=== PATIENT | male | born 1980 | race Caucasian/White ===

== ENCOUNTER 2025-01-16 15:15 | Outpatient (AMB) | payer OTHER, SELFPAY ==
--- NOTE | 2025-01-16 15:19 | A.OFFPC_ITS ---
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 Patient presents today with his who is the reel fed printer for the duration of this visit. Formal interpretation was declined today. He does have a few concerns the 1st being he has had elevated blood pressure throughout life without any specific values. He does not routinely monitor his blood pressure and has not been to see a doctor in at least 15 years. He has never been treated for high blood pressure and denies any symptoms at this time. He also mentions having right knee pain and was recently seen [facility] where x-rays were taken and he was told it was normal. He has pain on the medial aspect of the right knee with flexion of the knee and with activities including bending. The pain began about 1 year ago without any inciting event or injury. He does use Motrin and Tylenol as needed for pain. [facility] Surgical History S/P appendectomy Social History Household Members: Spouse and Children Both parents involved: Yes Caregiver staying overnight: No Housing: House Are you a primary healthcare specialist to a significant other at home: No Alcohol intake: never Patient Tobacco Use Status: Never used Tobacco e-Cigarette/Vaping Use: Never Used service: No Current occupational status: employed and unemployed Hearing needs: No Vision needs: No Questionnaire PHQ-9 Over the last 2 weeks, how often have you been bothered by any of the following problems? 1. Little interest or pleasure in doing things: not at all 2. Feeling down, depressed, or hopeless: not at all 3. Trouble falling or staying asleep, or sleeping too much: not at all 4. Feeling tired or having little energy: not at all 5. Poor appetite or overeating: not at all 6. Feeling bad about yourself - or that you are a failure or have let yourself or your family down: not at all 7. Trouble concentrating on things, such as reading the newspaper or watching television: not at all 8. Moving or speaking so slowly that other people could have noticed. Or the opposite - being so fidgety or restless that you have been moving around a lot more than usual: not at all 9. Thoughts that you would be better off or of hurting yourself in some way: not at all Total score: 0 Depression Screening Interpretation: Negative Depression Screening Done: Yes 33203 - PHQ-9 Billing: Yes Source: Developed by Drs. Bowen Hurst, Kelly Hickman, Julian Castillo and colleagues, with an educational daniela from [employer]. Thrive Questionnaire Date Thrive assessed: 01/16/25 I am a: Patient What is your living situation today?: I have a steady place to live Within the past 12 months, did the food you bought not last and you didn't have the money to get more?: Never true Within the past 12 months, did you worry whether your food would run out before you got money to buy more?: Never true Do you have trouble paying for medicines?: No Do you have trouble getting transportation to medical appointments?: No Do you have trouble paying your heating and electricity bill?: No Do you have trouble taking care of your child, family member or friend?: No Do you have trouble with day-to-day activities such as bathing, preparing meals, shopping, managing finances, etc.?: No Are you currently unemployed and looking for a job?: No Are you interested in more education?: No Please select the resources that you would like help with: None Currently or been in a relationship where the following occur: No concerns reported THRIVE Score: 0 AUDIT C Alcohol Use Questionnaire (AUDIT-C) 1. How often do you have a drink containing alcohol?: Never Total Score: 0 MUNIR-7 AMB Questionnaire MUNIR-7 Date MUNIR - 7 assessed: 01/16/25 Feeling nervous, anxious, or on edge: 0 = Not at all Not being able to stop or control worryin = Not at all Worrying too much about different things: 0 = Not at all Trouble relaxin = Not at all Being so restless that it is hard to sit still: 0 = Not at all Becoming easily annoyed or irritable: 0 = Not at all Feeling afraid as if something awful might happen: 0 = Not at all Total MUNIR-7 score (0-4 normal; 5-9 mild; 10-14 moderate; 15-21 severe): 0 Source: Developed by Drs. Bowen Hurst, Kelly Hickman, Julian Castillo and colleagues, with an educational daniela from [employer]. MUNIR-7 Assessment Billing MUNIR-7 Assessment Tool: MUNIR-7 Assessment 78852 Review of Systems Const Denies body aches, Denies chills, Denies fever(s), Denies headache(s) and Denies poor appetite Eyes Reports no additional complaints ENT Denies dysphagia, Denies dizziness, Denies headache(s) and Denies odynophagia Card Denies chest pain, Denies syncope, Denies edema, Denies irregular heart rhythm, Denies lightheadedness and Denies dyspnea Resp Denies cough and Denies dyspnea GI Denies abdominal pain, Denies constipation, Denies dysphagia, Denies diarrhea, Denies nausea, Denies odynophagia and Denies vomiting Reports no additional complaints Musc Reports no additional complaints and Denies abnormal gait Skin/Breast Reports system reviewed and no additional complaints, except as documented Neuro Denies abnormal gait, Denies dizziness, Denies syncope and Denies headache(s) Psych Reports no additional complaints Physical exam (Primary Care) Vital Signs: Last Vital Signs Pulse 97 01/16/25 15:23 BP 140/82 H 01/16/25 15:23 Pulse Ox 98 01/16/25 15:23 BMI result Body Mass Index 26.8 Tobacco/Smoking Status: Tobacco use Status Tobacco use date assessed 01/16/25 01/16/25 15:23 Patient Tobacco Use Status Never used Tobacco 01/16/25 15:30 e-Cigarette/Vaping Use Never Used 01/16/25 15:30 PHQ-9: PHQ-9 Score PHQ-9: Total score 0 01/16/25 15:23 Depression Screening Interpretation: Negative Thrive Assessment: Date of Thrive Assessment Date Thrive assessed 01/16/25 01/16/25 15:23 Currently or been in a relationship where the following occur: No concerns reported Const General: cooperative, healthy appearing, comfortable and no acute distress Orientation/consciousness: patient oriented x3 HENMT Head: Yes normocephalic Ears: hearing grossly normal bilaterally General nose exam: Normal external nose present Eyes General: appearance normal, both eyes and all related structures Conjunctivae: conjunctivae normal Neck Neck: Yes full ROM and Yes no lymphadenopathy Resp Effort & Inspection: normal respiratory effort Auscultation: clear to auscultation bilaterally, no crackles, no rales, no rhonchi and no wheezes Cardio Rate: regular rate Rhythm: regular rhythm Skin General skin exam: no rashes or lesions noted Neuro General: patient oriented x3 Gait exam (Neuro): Normal gait present Extrem Other: No tenderness to palpation over the entirety of the right knee. Intact strength, sensation, pulses in bilateral lower extremities. Positive Maria Esther test eliciting pain on the medial aspect of the right knee General: Yes normal to inspection, Yes full ROM and No edema Psych Affect: normal affect Attitude: cooperative Insight: Good insight present (Psych) Judgement: Good judgement present (Psych) Coding Level of Care Code New Pt Level 4 (31707) Diagnoses Elevated blood pressure reading without diagnosis of hypertension R03.0 Right medial knee pain M25.561 Additional Codes MUNIR-7 Assessment Billing - MUNIR-7 Assessment Tool: MUNIR-7 Assessment 53756 ([id number]) PHQ-9 - 99507 - PHQ-9 Billing: Yes ([id number]) Assessment & Plan Assessment & Plan (1) Elevated blood pressure reading without diagnosis of hypertension: Comment: long hx of HBP Code(s): R03.0 - Elevated blood-pressure reading, without diagnosis of hypertension Category: Medical Plan: Patient having a history of elevated blood pressure. In the office today 140/82 and 148/90 when retaken. Discussed starting medication as this is an ongoing issue however patient would like to hold off on medication at this time. Patient was given parameters for elevated blood pressure and informational resources. Advised to take blood pressure daily for the next 2 months and reach out to the office if blood pressure should exceed 140/90. Consider losartan or lisinopril if blood pressure remains elevated. Bring log to next visit (2) Right medial knee pain: Code(s): M25.561 - Pain in right knee Category: Medical Plan: Patient having medial knee pain of the right knee concerning for possible meniscus tear. X-ray was normal and plan to obtain these results from [facility]. I did recommend physical therapy however due to patient's working schedule this is a not a feasible option. Plan to refer to Orthopedics for further evaluation and treatment Plan This note was constructed using voice recognition software. While every effort has been made to ensure accuracy and personal banking officer, still areas may have been included sometimes these areas may affect the content or meeting of the given symptoms. Total time spent caring for the patient today was 30 minutes. This includes time spent before the visit reviewing the chart, time spent during the visit, and time spent after the visit and documentation. Orders: Referrals Orthopedics Referral M25.561 - Pain in right knee
[2025-01-16 15:23] VITALS: BP 140/82; PULSE 97; O2SAT 98; BMI 26.8
== END 2025-01-16 16:04 | disposition home or self-care (01) ==
LOC: HO.HMCH 15:16
DX: R03.0 Elevated blood-pressure reading, without diagnosis of hypertension (principal); M25.561 Pain in right knee

== ENCOUNTER → 2025-01-16 15:15 | Outpatient (BNVA) | payer OTHER, SELFPAY | DX: M25.561 Pain in right knee (principal); R03.0 Elevated blood-pressure reading, without diagnosis of hypertension | CPT/HCPCS: 96127; 99202 ==

== ENCOUNTER 2025-03-31 10:15 | Outpatient (REF) | payer OTHER, SELFPAY ==
--- NOTE | ~2025-03-31 | XR_ITS ---
EXAMINATION: XR KNEE, RIGHT CLINICAL INFORMATION: M25.561 - Pain in right knee COMPARISON: None available. TECHNIQUE: Three views of the right knee. FINDINGS: No fracture, dislocation, or suspicious bone lesion. Normal bone mineralization. Normal alignment. Joint spaces are preserved. No significant arthropathy. Normal patellar alignment. No significant joint effusion. Soft tissues appear normal. XR/XR knee RT 3V IMPRESSION: Normal right knee. Electronically signed by: Rashad Titus MD 03/31/2025 01:14 PM EDT
--- OUTSIDE RECORDS SUMMARY | 2025-03-31 12:04 | XMS_ITS | Clinical Summary ---
Author Organization [facility] Address [address] [place] [address] [place] [phone] Phone Care Team Providers Care Strategic Intelligence Officer Name Role Phone Pcp, Unknown Primary Care Provider Unavailabl e Allergies No known active allergies Medications No known medications Social History Tobacco Use Types Packs/Day Years Used Date Smoking Tobacco: Never Assessed Education Answer Date Recorded Are you interested in more education? Not on kacy e 08/13/2024 Are you concerned about learning? Not on file 08/13/2024 No 08/13/2024 No 08/13/2024 Digital Access Answer Date Recorded No 08/13/2024 No 08/13/2024 Reliable internet access at home? Not on file 08/13/2024 Device with a working camera? Not on file Sex and Gender Information Value Date Recorded Sex Assigned at Not on file Legal Sex Male 1:18 PM EST Gender Identity Not on file Sexual Orientation Not on file Plan of Treatment Health Maintenance Due Date Last Done Comments Adult Td,Tdap Booster 1979 LIPID PANEL 1979 DEPRESSION SCREENING 1991 SMOKING Hx and SMOKELESS TOB ACCO SCREENING 12/01/1992 HEPATITIS C SCREENING 12/01/1997 HIV ONE-TIME SCREENING (18-6 5 YEARS) 12/01/1997 COLOGUARD 12/01/2024 COLONOSCOPY 12/01/2024 COLORECTAL CANCER SCREENING 12/01/2024 FIT TEST 12/01/2024 FOBT 12/01/2024 SIGMOIDOSCOPY 12/01/2024 VIRTUAL COLONOSCOPY 12/01/2024 INFLUENZA VACCINE (#1) 2025 COVID-19 VACCINE (2024-2 6 season) 2025 HEPATITIS A VACCINES Aged Out No long er eligible based on patient's age to complete this topic HIB VACCINES Aged Out No longer eligi ble based on patient's age to complete this topic MENINGOCOCCAL VACCINES (ACWY) Aged Out No longer eligible based on patient's age to complete this topic MENINGOCOCCAL VACCINES (B) Aged Out N o longer eligible based on patient's age to complete this topic PNEUMOCOCCAL VACCINES (0-49 years) Aged Out No longer eligible based on patient's age to complete this topic Medical Devices Not [place] [id number] [facility] [place] [address] [facility] [employer] [place] [address] [facility] [employer] [place] [address] [facility] Care Teams Strategic Intelligence Officer Relationship Specialty Start Date End Date Pcp, Unknown PCP - General 08/13/24 Additional Source Comments The information contained in this document represents components of the legal health record. It is not the complete legal health record.[facility]
== END 2025-03-31 10:16 | disposition home or self-care (01) ==
LOC: HO.HOSX 10:15
PROVIDERS: Visit Provider Physician Assistant
DX: S83.241A Other tear of medial meniscus, current injury, right knee, initial encounter (principal); X50.9XXA Other and unspecified overexertion or strenuous movements or postures, initial encounter
CPT/HCPCS: 73562; 99202

== ENCOUNTER 2025-03-31 12:48 | Outpatient (AMB) | payer OTHER, SELFPAY ==
--- NOTE | 2025-03-31 13:02 | MHC.OFFVIS ---
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 The patient describes his pain as sharp in nature. Most of the pain is along the medial aspect of his knee. 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 His symptoms have gotten worse over the last year in spite of continued non operative treatments. He has failed the last 6 weeks of conservative treatment which has included Tylenol, anti-inflammatory medicines and a home exercise program. Allergies No Known Allergies Allergy (Verified 03/31/25 13:07) Medication List - Last Reconciled 03/31/25 by Nathaniel Erazo MD No Known Home Meds [facility] Surgical History S/P appendectomy Social History Household Members: Spouse and Children Both parents involved: Yes Caregiver staying overnight: No Housing: House Are you a primary career education teacher to a significant other at home: No Alcohol intake: never Patient Tobacco Use Status: Never used Tobacco e-Cigarette/Vaping Use: Never Used service: No Current occupational status: employed and unemployed Hearing needs: No Vision needs: No Physical Exam Vital Signs: BMI result Body Mass Index 28.2 Const Other: Well-nourished well-developed very friendly male awake alert and oriented x3 in no acute distress Extrem Other: Right knee examination shows a minimal effusion, minimal crepitus with range of motion, tenderness along his medial joint line, positive Shar's test, no instability Results Reviewed Results Reviewed: X-rays of the patient's right knee show mild diffuse joint space narrowing, no acute bony abnormalities Assessment & Plan Assessment & Plan (1) Tear of medial meniscus of right knee: Code(s): S83.241A - Other tear of medial meniscus, current injury, right knee, initial encounter Category: Medical Plan Mr. Kim presents with right knee pain and mechanical symptoms most likely due to a medial meniscus tear. Thus, I will send the patient for an MRI of his right knee for further evaluation. I will see him back once the MRI is completed to discuss the findings and treatment options. Feel free to call me at any time should questions regarding his orthopedic management arise. Thank you very much for asking me to see this very friendly gentleman. I spent 20 minutes in reviewing the patient's records and imaging studies, seeing the patient and documenting in the medical record. Orders: Orders MR knee RT wo con 04/01/25 S83.241A - Other tear of medial meniscus, current injury, right knee, initial encounter XR knee RT 3V Today M25.561 - Pain in right knee Coding Level of Care Code New Pt Level 3 (64877) Complex EM visit Add On G2211 Diagnoses Tear of medial meniscus of right knee S83.241A
[2025-03-31 13:06] VITALS: BMI 28.2
== END 2025-03-31 13:18 | disposition home or self-care (01) ==
LOC: HO.HOS 12:48
PROVIDERS: Visit Provider Orthopaedic Surgery
DX: S83.241A Other tear of medial meniscus, current injury, right knee, initial encounter (principal)
CPT/HCPCS: 99203

== ENCOUNTER → 2025-03-31 12:50 | Outpatient (BNV) | payer OTHER, SELFPAY | PROVIDERS: Visit Provider Radiology Diagnostic Radiology | DX: M25.561 Pain in right knee (principal) | CPT/HCPCS: 73562 ==

== ENCOUNTER 2025-04-30 06:35 | Outpatient (REF) | payer OTHER, SELFPAY ==
--- OUTSIDE RECORDS SUMMARY | 2025-04-30 06:38 | XMS_ITS | Clinical Summary ---
Author Organization [facility] Address [address] [place] [address] [place] [phone] Phone Care Team Providers Care Gang Investigator Name Role Phone Pcp, Unknown Primary Care [...] on patient's age to complete this topic IPV VACCINES Aged Out No longer eligi ble [...] topic Medical Devices Not on file Insurance [facility] PCP [place] [facility] PCP [place] [facility] PCP [facility] [employer] Care Teams Gang Investigator Relationship Specialty Start Date End Date Pcp, Unknown PCP - General 08/13/24 Additional Source Comments The information contained in this document represents components of the legal health record. It is not the complete legal health record[facility]
[2025-04-30 10:15] LABS: MANUAL DIFF FLAG NO
[2025-04-30 10:25] LABS: Hematocrit 46.6 % (42.0-52.0); Hemoglobin 16.1 g/dl (14.0-18.0); Mean Corpuscular HGB Conc 34.5 g/dl (31.0-36.0); Mean Corpuscular Hemoglobin 29.7 pg (27.0-33.0); Mean Corpuscular Volume 85.8 fL (80.0-98.0); Red Blood Count 5.43 X10*6/uL (4.60-5.80); White Blood Count 7.8 X10*3/uL (4.8-10.8)
[2025-04-30 10:26] LABS: Imm Gran Abs Auto 0.04 X10*3/uL (0.00-0.03); Imm Gran Pct Auto 0.5 % (0.0-0.4); Lymphocytes Absolute Auto 3.5 X10*3/uL (1.2-4.9); NRBC Abs Auto 0.000 X10*3/uL (0.0-0.012); NRBC Pct Auto 0.0 /100WBC (0.0-0.2); Platelet Count 246 X10*3/uL (160-400)
[2025-04-30 11:00] LABS: Alanine Aminotransferase 38 U/L (0-40); Albumin Level 4.6 g/dL (3.5-5.0); Alkaline Phosphatase 70 U/L (39-117); Anion Gap 11 (12-20); Aspartate Amino Transferase 34 U/L (5-37); Blood Urea Nitrogen 12 mg/dL (9-16); Calcium 9.4 mg/dL (8.4-10.2); Carbon Dioxide 27 mmol/L (22-29); Chloride 107 mmol/L (96-108); Cholesterol 281 mg/dL (<200); Estimated Glomerular Filt Rate > 60; HDL Cholesterol 49 mg/dL (>40); Potassium 3.6 mmol/L (3.3-5.1); Sodium 141 mmol/L (135-145); Total Protein 7.4 g/dL (6.5-8.0); Triglycerides 215 mg/dL (<150)
[2025-04-30 11:30] LABS: Folate 12.0 ng/mL (> or = 4.0); Vitamin B12 351 pg/mL (200-900)
== END 2025-04-30 06:36 | disposition home or self-care (01) ==
LOC: HO.HMGCLDS 06:35
DX: Z13.0 Encounter for screening for diseases of the blood and blood-forming organs and certain disorders involving the immune mechanism (principal); Z13.29 Encounter for screening for other suspected endocrine disorder; Z13.21 Encounter for screening for nutritional disorder; Z13.220 Encounter for screening for lipoid disorders; Z13.1 Encounter for screening for diabetes mellitus; R03.0 Elevated blood-pressure reading, without diagnosis of hypertension
CPT/HCPCS: 36415; 80053; 80061; 82306; 82607; 82746; 84443; 85025

== ENCOUNTER 2025-05-01 13:53 | Outpatient (AMB) | payer OTHER, SELFPAY ==
[2025-05-01 13:55] VITALS: BP 160/110; PULSE 70; TEMP 36.7; O2SAT 99; BMI 28.6
--- NOTE | 2025-05-01 13:55 | A.OFFPC_ITS ---
Vital Signs 05/01/25 13:55 05/01/25 14:17 Height 5 ft 6 in Weight 177 lb 6 oz BMI 28.6 BP 160/110 H 160/92 H Blood Pressure Location Lt brachial Lt brachial Position Sitting Sitting Pulse 70 Pulse Source Pulse Oximeter Temp 98.1 F Temp Source Temporal Artery Scan Pulse Oximetry (%) 99 Oxygen Delivery Method Room Air Intake Visit Reasons: f/u BP Certified Medical Technician Assistant Required: No Accompanied by: Self / Same As Patient Allergies No Known Allergies Allergy (Verified 05/01/25 14:01) Medication List - Last Reconciled 05/01/25 by Shruthi Gustafson PA-C No Known Home Meds Tobacco use date assessed: 01/16/25 Dental Screening Dental Screen Date: 01/16/25 Did you have a dental visit in the last 12 months?: Yes Did you have a dental problem in the last 6 months where you did not have access to dental care?: No Was dental information given to patient?: Patient has dentist HPI f/u BP HPI Details 44-year-old male with past medical histo ry of elevated blood pressure last seen 02/02 coming in for follow up. In review of the notes, patient was seen by Orthopedics 03/2025 plan for MRI of the right knee which is scheduled for next week. Presenting for management of elevated blood pressure. The patient has a history of high blood pressure and reports feeling well despite the elevated readings. Concerns regarding cholesterol levels were also discussed, though medication is not indicated at this time. As the patient is now 44, colon cancer screening has been recommended. [facility] Medical History (Updated 05/01/25 @ 14:38 by Shruthi Gustafson PA-C) Screening for hypercholesterolemia Surgical History S/P appendectomy Social History Household Members: Spouse and Children Both parents involved: Yes Caregiver staying overnight: No Housing: House Are you a primary lawn care technician to a significant other at home: No Alcohol intake: never Patient Tobacco Use Status: Never used Tobacco e-Cigarette/Vaping Use: Never Used service: No Current occupational status: employed and unemployed Hearing needs: No Vision needs: No Questionnaire PHQ-9 Over the last 2 weeks, how often have you been bothered by any of the following problems? 1. Little interest or pleasure in doing things: not at all 2. Feeling down, depressed, or hopeless: not at all 3. Trouble falling or staying asleep, or sleeping too much: not at all 4. Feeling tired or having little energy: not at all 5. Poor appetite or overeating: not at all 6. Feeling bad about yourself - or that you are a failure or have let yourself or your family down: not at all 7. Trouble concentrating on things, such as reading the newspaper or watching television: not at all 8. Moving or speaking so slowly that other people could have noticed. Or the opposite - being so fidgety or restless that you have been moving around a lot more than usual: not at all 9. Thoughts that you would be better off or of hurting yourself in some way: not at all Total score: 0 Depression Screening Interpretation: Negative Depression Screening Done: Yes 57856 - PHQ-9 Billing: Yes Source: Developed by Drs. Bowen Hurst, Kelly Hickman, Julian Castillo and colleagues, with an educational daniela from [email or web address]. Thrive Questionnaire Date Thrive assessed: 01/14/25 I am a: Patient What is your living situation today?: I have a steady place to live Within the past 12 months, did the food you bought not last and you didn't have the money to get more?: Never true Within the past 12 months, did you worry whether your food would run out before you got money to buy more?: Never true Do you have trouble paying for medicines?: No Do you have trouble getting transportation to medical appointments?: No Do you have trouble paying your heating and electricity bill?: No Do you have trouble taking care of your child, family member or friend?: No Do you have trouble with day-to-day activities such as bathing, preparing meals, shopping, managing finances, etc.?: No Are you currently unemployed and looking for a job?: No Are you interested in more education?: No Please select the resources that you would like help with: None Currently or been in a relationship where the following occur: No concerns reported THRIVE Score: 0 AUDIT C Alcohol Use Questionnaire (AUDIT-C) 1. How often do you have a drink containing alcohol?: Never Total Score: 0 MUNIR-7 AMB Questionnaire UMNIR-7 Date MUNIR - 7 assessed: 01/16/25 Feeling nervous, anxious, or on edge: 0 = Not at all Not being able to stop or control worryin = Not at all Worrying too much about different things: 0 = Not at all Trouble relaxin = Not at all Being so restless that it is hard to sit still: 0 = Not at all Becoming easily annoyed or irritable: 0 = Not at all Feeling afraid as if something awful might happen: 0 = Not at all Total MUNIR-7 score (0-4 normal; 5-9 mild; 10-14 moderate; 15-21 severe): 0 Source: Developed by Drs. Bowen Hurst, Kelly Hickman, Julian Castillo and colleagues, with an educational daniela from [email or web address]. MUNIR-7 Assessment Billing MUNIR-7 Assessment Tool: MUNIR-7 Assessment 42573 Review of Systems Const Denies body aches, Denies chills, Denies fever(s), Denies headache(s) and Denies poor appetite Eyes Reports no additional complaints ENT Denies dizziness and Denies headache(s) Card Denies chest pain, Denies edema, Denies lightheadedness and Denies dyspnea Resp Denies dyspnea GI Denies abdominal pain, Denies nausea and Denies vomiting Reports no additional complaints Musc Reports no additional complaints and Denies abnormal gait Skin/Breast Reports system reviewed and no additional complaints, except as documented Neuro Denies abnormal gait, Denies dizziness and Denies headache(s) Psych Reports no additional complaints Physical exam (Primary Care) Vital Signs: Last Vital Signs Temp 98.1 F 05/01/25 13:55 Oxygen Delivery Method Room Air 05/01/25 13:55 Tobacco/Smoking Status: Tobacco use Status Tobacco use date assessed 01/16/25 01/16/25 15:23 Patient Tobacco Use Status Never used Tobacco 01/16/25 15:30 e-Cigarette/Vaping Use Never Used 01/16/25 15:30 Depression Screening Interpretation: Negative Thrive Assessment: Date of Thrive Assessment Date Thrive assessed 01/14/25 05/01/25 13:54 Currently or been in a relationship where the following occur: No concerns reported Const General: cooperative, healthy appearing, comfortable and no acute distress Orientation/consciousness: patient oriented x3 HENMT Head: Yes normocephalic Ears: hearing grossly normal bilaterally General nose exam: Normal external nose present Eyes General: appearance normal, both eyes and all related structures Conjunctivae: conjunctivae normal Neck Neck: Yes full ROM and Yes no lymphadenopathy Resp Effort & Inspection: normal respiratory effort Auscultation: clear to auscultation bilaterally, no crackles, no rales, no rhonc hi and no wheezes Cardio Rate: regular rate Rhythm: regular rhythm Skin General skin exam: no rashes or lesions noted Neuro General: patient oriented x3 Gait exam (Neuro): Normal gait present Extrem General: Yes normal to inspection, Yes full ROM and No edema Psych Affect: normal affect Attitude: cooperative Insight: Good insight present (Psych) Judgement: Good judgement present (Psych) Coding Level of Care Code Est Pt Level 3 (36929) Diagnoses Right medial knee pain M25.561 Hypercholesterolemia E78.00 Hypertension I10 Colon cancer screening Z12.11 Additional Codes MUNIR-7 Assessment Billing - MUNIR-7 Assessment Tool: MUNIR-7 Assessment 60014 ([id number]) PHQ-9 - 02093 - PHQ-9 Billing: Yes ([id number]) Assessment & Plan Assessment & Plan (1) Right medial knee pain: Code(s): M25.561 - Pain in right knee Category: Medical Plan: Patient is currently following with orthopedics for concern of meniscal tear. He has MRI scheduled for 05/09/2025 and orthopedic appointment to follow up. (2) Hypercholesterolemia: Code(s): E78.00 - Pure hypercholesterolemia, unspecified Category: Medical Plan: Cholesterol levels are a concern but do not warrant medication at this time as ASCVD risk is low. Management will focus on dietary modifications, and educational materials were provided. Cholesterol labs will be rechecked in three months along with kidney function. Patient was given information today. (3) Hypertension: Code(s): I10 - Essential (primary) hypertension Category: Medical Plan: The patient's blood pressure was rechecked and found to be 160/92 mmHg, which is significantly elevated. Despite feeling well, it was explained that sustained high blood pressure can cause damage to the heart and kidneys over time. Additionally, uncontrolled hypertension could be a contraindication for p otential future surgery. Initiate treatment with a very low dose of lisinopril to mitigate potential side effects from a rapid decrease in blood pressure. Recommend patient to monitor blood pressures at home. (4) Colon cancer screening: Code(s): Z12.11 - Encounter for screening for malignant neoplasm of colon Category: Medical Plan: Discussed colon cancer screening and presented patient with options. He will think about this and make a decision at his next visit. Plan This note was constructed using voice recognition software. While every effort has been made to ensure accuracy and senior medical transcriptionist, still areas may have been included sometimes these areas may affect the content or meeting of the given symptoms. Total time spent caring for the patient today was 20 minutes. This includes time spent before the visit reviewing the chart, time spent during the visit, and time spent after the visit and documentation. Patient was informed and verbally consented to the use of an ambient scribe for clinic note documentation during this visit. Orders: Orders Lipid Panel 3 Months E78.00 - Pure hypercholesterolemia, unspecified Comprehensive Met. Panel 3 Months I10 - Essential (primary) hypertension Medications: New lisinopril 5 mg PO DAILY 90 tabs 0RF
[2025-05-01 14:17] VITALS: BP 160/92
--- OUTSIDE RECORDS SUMMARY | 2025-05-01 14:24 | XMS_ITS | Clinical Summary ---
Author Organization [facility] Address [address] [place] [address] [place] [phone] Phone Care Team Providers Care Drafting Detailer Name Role Phone Pcp, Unknown Primary Care [...] [place] [id number] [facility] [phone] [facility] [employer] [phone] [facility] [employer] [phone] [facility] [employer] [employer] Care Teams Drafting Detailer Relationship Specialty Start Date End Date Pcp, Unknown PCP - General 08/13/24 Additional Source Comments The information contained in this document represents components of the legal health record. It is not the complete legal health record.[facility]
== END 2025-05-01 15:15 | disposition home or self-care (01) ==
LOC: HO.HMCH 13:54
DX: M25.561 Pain in right knee (principal); E78.00 Pure hypercholesterolemia, unspecified; I10 Essential (primary) hypertension; Z12.11 Encounter for screening for malignant neoplasm of colon

== ENCOUNTER → 2025-05-01 13:53 | Outpatient (BNVA) | payer OTHER, SELFPAY | DX: I10 Essential (primary) hypertension (principal); M25.561 Pain in right knee; E78.00 Pure hypercholesterolemia, unspecified | CPT/HCPCS: 96127; 99212 ==

== ENCOUNTER 2025-05-09 14:17 | Outpatient (REF) | payer OTHER, SELFPAY ==
--- NOTE | ~2025-05-09 | MR_ITS ---
CLINICAL HISTORY: S83.241A - Other tear of medial meniscus, current injury, right knee, in... MR right knee without gadolinium Comparison: None provided Findings: No acute fracture or pathologic bone lesion. There is a small patellofemoral joint effusion. All ligaments are intact. Patellar retinacula and iliotibial band are intact. No tears of the quadriceps, patellar, popliteus, or flexor tendons. There is an oblique horizontal tear of the posterior horn of the medial meniscus associated with a small displaced an extruded fragment. The anterior horn is intact. In the lateral meniscus is normal. IMPRESSION: 1. Oblique horizontal tear of the posterior horn of the medial meniscus with a displaced inferiorly extruded fragment. 2. Small joint effusion. This document has been electronically signed by: Leonid Hi MD on 05/11/2025 13:16:36
--- OUTSIDE RECORDS SUMMARY | 2025-05-09 14:23 | XMS_ITS | Clinical Summary ---
Author Organization [facility] Address [address] [place] [address] [place] [phone] Phone Care Team Providers Care Student Dean Name Role Phone Pcp, Unknown Primary Care [...] [place] [id number] [facility] [phone] [facility] [employer] [address] [facility] [employer] [address] [facility] [employer] [facility] [employer] Care Teams Student Dean Relationship Specialty Start Date End Date Pcp, Unknown PCP - General 08/13/24 Additional Source Comments The information contained in this document represents components of the legal health record. It is not the complete legal health record.[facility]
== END 2025-05-09 14:18 | disposition home or self-care (01) ==
LOC: HO.MRI 14:17
PROVIDERS: Visit Provider Orthopaedic Surgery
DX: S83.241A Other tear of medial meniscus, current injury, right knee, initial encounter (principal)
CPT/HCPCS: 73721

== ENCOUNTER → 2025-05-09 14:23 | Outpatient (BNV) | payer OTHER, SELFPAY | PROVIDERS: Visit Provider Radiology Diagnostic Radiology | DX: S83.241D Other tear of medial meniscus, current injury, right knee, subsequent encounter (principal); M25.561 Pain in right knee | CPT/HCPCS: 73721 ==

== ENCOUNTER 2025-05-20 10:21 | Outpatient (AMB) | payer OTHER, SELFPAY ==
--- NOTE | 2025-05-20 10:23 | A.OFFVIS_ITS ---
Intake Visit Reasons: MRI review of right knee Intake Note: Hay is a 44 year old male who presents with complaints of intermittent right knee pain. The patient describes his pain as sharp in nature. Most of the pain is along the medial aspect of his knee. 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 The patient states that since his last visit he has been getting chiropractic treatments which have helped him somewhat. Realtime Court Reporter Required: Yes Realtime Court Reporter Services: Realtime Court Reporter Offered & Declined Realtime Court Reporter Name: . Allergies No Known Allergies Allergy (Verified 05/01/25 14:01) Medication List - Last Reconciled 05/20/25 by Nathaniel Erazo MD lisinopril 5 mg PO DAILY [facility] Medical History (Updated 05/01/25 @ 14:38 by Shruthi Gustafson PA-C) Screening for hypercholesterolemia Surgical History S/P appendectomy Social History Household Members: Spouse and Children Both parents involved: Yes Caregiver staying overnight: No Housing: House Are you a primary direct care worker to a significant other at home: No Alcohol intake: never Patient Tobacco Use Status: Never used Tobacco e-Cigarette/Vaping Use: Never Used service: No Current occupational status: employed and unemployed Hearing needs: No Vision needs: No Physical Exam Extrem Other: Right knee examination shows a minimal effusion, mild crepitus with range of motion, tenderness along his medial joint line, positive Shar's test, no instability Results Reviewed Results Reviewed: MRI of the patient's right knee shows mild diffuse degenerative changes as well as a tear of the medial meniscus Assessment & Plan Assessment & Plan (1) Tear of medial meniscus of right knee: Code(s): S83.241A - Other tear of medial meniscus, current injury, right knee, initial encounter Category: Medical Plan Mr. Kim presents with intermittent right knee pain and mechanical symptoms due to a medial meniscus tear. I had a lengthy discussion with the patient regarding the treatment options. At this point his symptoms seem to be improving with chiropractic treatments. He will continue with his activity modifications. We will hold off on arthroscopic surgery for now. He will follow up with me on an as-needed basis should his symptoms worsen in any way. Feel free to call me at any time should questions regarding his orthopedic management arise. I spent 22 minutes in reviewing the patient's records and imaging studies, seeing the patient and documenting in the medical record. Coding Level of Care Code Est Pt Level 3 (91860) Add On Problem Visit Only Diagnoses Tear of medial meniscus of right knee S83.241A
== END 2025-05-20 10:47 | disposition home or self-care (01) ==
LOC: HO.HOS 10:22
PROVIDERS: Visit Provider Orthopaedic Surgery
DX: S83.241A Other tear of medial meniscus, current injury, right knee, initial encounter (principal)
CPT/HCPCS: 99213

== ENCOUNTER → 2025-05-20 10:21 | Outpatient (BNVA) | payer OTHER, SELFPAY | PROVIDERS: Visit Provider Orthopaedic Surgery | DX: S83.241A Other tear of medial meniscus, current injury, right knee, initial encounter (principal) | CPT/HCPCS: 99212 ==

== ENCOUNTER 2025-06-03 13:00 | Outpatient (AMB) | payer OTHER, SELFPAY ==
--- OUTSIDE RECORDS SUMMARY | 2025-06-03 13:02 | XMS_ITS | Clinical Summary ---
Author Organization [facility] Address [address] [place] [address] [place] [phone] Phone Care Team Providers Care Parquetry Layer Name Role Phone Pcp, Unknown Primary Care [...] Not [place] [phone] [facility] [address] [facility] [employer] [phone] [facility] [employer] [place] [address] [facility] [employer] [employer] Care Teams Parquetry Layer Relationship Specialty Start Date End Date Pcp, Unknown PCP - General 08/13/24 Additional Source Comments The information contained in this document represents components of the legal health record. It is not the complete legal health record.[facility]
--- NOTE | 2025-06-03 13:07 | MHC.OFFVIS ---
Intake Visit Reasons: Right knee pain and giving way Intake Note: Hay is a 44 year old male who presents with complaints of progressively worsening right knee pain and giving way. He describes his pain as sharp in nature. Most of the pain is along the medial aspect of his knee. He has tried chiropractic treatments which gave him minimal relief. 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 He states that his right knee will give out several times per day. At this point his right knee pain and mechanical symptoms are interfering with his activities of daily living and his ability to sleep well through the night. Allergies No Known Allergies Allergy (Verified 05/01/25 14:01) Medication List - Last Reconciled 06/05/25 by Nathaniel Erazo MD lisinopril 5 mg PO DAILY [facility] Medical History Screening for hypercholesterolemia Surgical History S/P appendectomy Social History Household Members: Spouse and Children Both parents involved: Yes Caregiver staying overnight: No Housing: House Are you a primary grounds caretaker to a significant other at home: No Alcohol intake: never Patient Tobacco Use Status: Never used Tobacco e-Cigarette/Vaping Use: Never Used service: No Current occupational status: employed and unemployed Hearing needs: No Vision needs: No Physical Exam Extrem Other: Right knee examination shows a minimal effusion, minimal crepitus with range of motion, tenderness along his medial joint line, positive Shar's test, no instability Results Reviewed Results Reviewed: Standing full weight-bearing x-rays of the patient's right knee show mild diffuse joint space narrowing, no acute bony abnormalities MRI of the patient's right knee shows mild degenerative changes as well as a medial meniscus tear Assessment & Plan Assessment & Plan (1) Tear of medial meniscus of right knee: Code(s): S83.241A - Other tear of medial meniscus, current injury, right knee, initial encounter Category: Medical Plan Mr. Kim presents with progressively worsening right knee pain and mechanical symptoms due to a medial meniscus tear. I had a lengthy discussion with the patient regarding the treatment options. At this point he has failed continued non operative treatments. The risks and benefits of right knee arthroscopic surgery were discussed at length with the patient. The patient wishes to proceed with surgery. Surgery will involve right knee arthroscopic partial medial meniscectomy. He does understand that he may not get 100% relief of his symptoms depending on the severity of his degenerative changes. The patient will be given a prescription for pain medicine at the time of his surgery. He will follow up as instructed. Feel free to call me at any time should questions regarding his orthopedic management arise. I spent 22 minutes in reviewing the patient's records and imaging studies, seeing the patient and documenting in the medical record. Coding Level of Care Code Est Pt Level 3 (54221) Add On Problem Visit Only Diagnoses Tear of medial meniscus of right knee S83.241A
== END 2025-06-03 13:41 | disposition home or self-care (01) ==
LOC: HO.HOS 13:01
PROVIDERS: Visit Provider Orthopaedic Surgery
DX: S83.241A Other tear of medial meniscus, current injury, right knee, initial encounter (principal)
CPT/HCPCS: 99214

== ENCOUNTER → 2025-06-03 13:00 | Outpatient (BNVA) | payer OTHER, SELFPAY | PROVIDERS: Visit Provider Orthopaedic Surgery | DX: S83.241A Other tear of medial meniscus, current injury, right knee, initial encounter (principal); X58.XXXA Exposure to other specified factors, initial encounter; Y92.9 Unspecified place or not applicable; Y99.9 Unspecified external cause status; Y93.9 Activity, unspecified | CPT/HCPCS: 99212 ==

== ENCOUNTER 2025-06-09 13:24 | Outpatient (AMB) | payer OTHER, SELFPAY ==
--- NOTE | 2025-06-09 13:27 | MHC.PC.OV ---
Vital Signs 06/09/25 13:28 06/09/25 13:41 Height 5 ft 6 in Weight 178 lb BMI 28.7 BP 138/76 130/72 Blood Pressure Location Lt brachial Lt brachial Position Sitting Sitting Respiration 18 Pulse 64 Pulse Source Pulse Oximeter Temp 98.7 F Temp Source Temporal Artery Scan Pulse Oximetry (%) 98 Oxygen Delivery Method Room Air Intake Visit Reasons: BP check/ Pre-op clearance Intake Note: Right Knee surgery 06/22/25 Rn Hospital Required: No Accompanied by: Self / Same As Patient Allergies No Known Allergies Allergy (Verified 06/09/25 13:27) Medication List - Last Reconciled 06/09/25 by Shruthi Gustafson PA-C lisinopril 5 mg PO DAILY Tobacco use date assessed: 01/16/25 Dental Screening Dental Screen Date: 01/16/25 HPI BP check/ Pre-op clearance HPI Details 44-year-old male past medical history of hypertension last seen 04/2025 coming in for preoperative visit.? In review of the notes, patient is scheduled to have knee surgery 06/22/[address] Erazo.? Hypertension: recently started on Lisinopril 5mg and has been doing well on this medication. BP in the office today 130/72. Patient has no history of ME, CVA or CHF. He has had surgery and anesthesia in the past without complication. [facility] Medical History Screening for hypercholesterolemia Surgical History S/P appendectomy Social History Household Members: Spouse and Children Both parents involved: Yes Caregiver staying overnight: No Housing: House Are you a primary nonfarm animal caretaker to a significant other at home: No Alcohol intake: never Patient Tobacco Use Status: Never used Tobacco e-Cigarette/Vaping Use: Never Used service: No Current occupational status: employed and unemployed Hearing needs: No Vision needs: No Questionnaire Thrive Questionnaire Date Thrive assessed: 01/14/25 I am a: Patient What is your living situation today?: I have a steady place to live Within the past 12 months, did the food you bought not last and you didn't have the money to get more?: Never true Within the past 12 months, did you worry whether your food would run out before you got money to buy more?: Never true Do you have trouble paying for medicines?: No Do you have trouble getting transportation to medical appointments?: No Do you have trouble paying your heating and electricity bill?: No Do you have trouble taking care of your child, family member or friend?: No Do you have trouble with day-to-day activities such as bathing, preparing meals, shopping, managing finances, etc.?: No Are you currently unemployed and looking for a job?: No Are you interested in more education?: No Currently or been in a relationship where the following occur: No concerns reported THRIVE Score: 0 MUNIR-7 AMB Questionnaire MUNIR-7 Date MUNIR - 7 assessed: 01/16/25 Source: Developed by Drs. Bowen Hurst, Kelly Hickman, Julian Castillo and colleagues, with an educational daniela from [employer]. Review of Systems Const Denies body aches, Denies chills, Denies fever(s), Denies headache(s) and Denies poor appetite Eyes Reports no additional complaints ENT Denies dizziness and Denies headache(s) Card Denies chest pain, Denies syncope, Denies edema, Denies irregular heart rhythm, Denies lightheadedness and Denies dyspnea Resp Denies cough and Denies dyspnea GI Denies abdominal pain, Denies nausea and Denies vomiting Reports no additional complaints Musc Reports no additional complaints and Denies abnormal gait Skin/Breast Reports system reviewed and no additional complaints, except as documented Neuro Denies abnormal gait, Denies dizziness, Denies syncope and Denies headache(s) Psych Reports no additional complaints Physical exam (Primary Care) Vital Signs: Last Vital Signs Temp 98.7 F 06/09/25 13:28 Pulse 64 06/09/25 13:28 Resp 18 06/09/25 13:28 BP 138/76 06/09/25 13:28 Pulse Ox 98 06/09/25 13:28 Oxygen Delivery Method Room Air 06/09/25 13:28 BMI result Body Mass Index 28.7 Tobacco/Smoking Status: Tobacco use Status Tobacco use date assessed 01/16/25 06/09/25 13:29 Patient Tobacco Use Status Never used Tobacco 06/09/25 13:29 e-Cigarette/Vaping Use Never Used 06/09/25 13:29 Thrive Assessment: Date of Thrive Assessment Date Thrive assessed 01/14/25 06/09/25 13:29 Currently or been in a relationship where the following occur: No concerns reported Const General: cooperative, healthy appearing, comfortable and no acute distress Orientation/consciousness: patient oriented x3 HENMT Head: Yes normocephalic Ears: hearing grossly normal bilaterally General nose exam: Normal external nose present Eyes General: appearance normal, both eyes and all related structures Conjunctivae: conjunctivae normal Neck Neck: Yes full ROM and Yes no lymphadenopathy Resp Effort & Inspection: normal respiratory effort Auscultation: clear to auscultation bilaterally, no crackles, no rales, no rhonchi and no wheezes Cardio Rate: regular rate Rhythm: regular rhythm Skin General skin exam: no rashes or lesions noted Neuro General: patient oriented x3 Gait exam (Neuro): Normal gait present Extrem General: Yes normal to inspection, Yes full ROM and No edema Psych Affect: normal affect Attitude: cooperative Insight: Good insight present (Psych) Judgement: Good judgement present (Psych) Coding Level of Care Code Est Pt Level 3 (51645) Diagnoses Pre-op exam Z01.818 Hypertension I10 Assessment & Plan Assessment & Plan (1) Pre-op exam: Code(s): Z01.818 - Encounter for other preprocedural examination Category: Medical Plan: Regarding preop clearance, the patient is at low risk for proposed surgery. Reviewed with the patient that no surgery is completely free of risk and that this examination is to assist the surgeon in reviewing informed consent. Advised patient to continue all medications as prescribed unless otherwise instructed by surgeon. Avoid NSAIDs 1 week prior to surgery. Blood work has been evaluated. EKG has been ordered and must be completed prior to clearance being granted. He will have done this as soon as possible. (2) Hypertension: Code(s): I10 - Essential (primary) hypertension Category: Medical Plan: Continue on current blood pressure medication. Avoid salt intake and encourage healthy diet and regular exercise. Plan This note was constructed using voice recognition software. While every effort has been made to ensure accuracy and director of placement, still areas may have been included sometimes these areas may affect the content or meeting of the given symptoms. Total time spent caring for the patient today was 20 minutes. This includes time spent before the visit reviewing the chart, time spent during the visit, and time spent after the visit and documentation. Patient was informed and verbally consented to the use of an ambient scribe for clinic note documentation during this visit.
[2025-06-09 13:28] VITALS: BP 138/76; PULSE 64; RESP 18; TEMP 37.1; O2SAT 98; BMI 28.7
[2025-06-09 13:41] VITALS: BP 130/72
--- OUTSIDE RECORDS SUMMARY | 2025-06-09 17:19 | XMS_ITS | Clinical Summary ---
Author Organization [facility] Address [address] [place] [address] [place] [id number] Phone Care Team Providers Care Supervisor M[facility] Name Role Phone Pcp, Unknown Primary Care [...] [place] [phone] [facility] [place] [phone] [facility] [employer] [place] [phone] [facility] [place] [phone] [facility] [employer] [facility] [employer] Care Teams Supervisor M[facility] Relationship Specialty Start Date End Date Pcp, Unknown PCP - General 08/13/24 Additional Source Comments The information contained in this document represents components of the legal health record. It is not the complete legal health record.[facility]
== END 2025-06-09 13:47 | disposition home or self-care (01) ==
LOC: HO.HMCH 13:24
DX: Z01.818 Encounter for other preprocedural examination (principal); I10 Essential (primary) hypertension

== ENCOUNTER → 2025-06-09 13:24 | Outpatient (REF) | payer OTHER, SELFPAY ==
--- NOTE | 2025-06-09 13:53 | ECG_ITS ---
Test Reason : preop Blood Pressure : */* mmHG Vent. Rate : 62 BPM Atrial Rate : 62 BPM P-R Int : 136 ms QRS Dur : 80 ms QT Int : 374 ms P-R-T Axes : 18 34 15 degrees QTcB Int : 379 ms Normal sinus rhythm Normal ECG No previous ECGs available Referred By: Shruthi Gustafson Electronically Signed By: KRYSTAL LOPEZ
== END ==
LOC: HO.CARD 13:24
DX: Z01.818 Encounter for other preprocedural examination (principal); I10 Essential (primary) hypertension
CPT/HCPCS: 93005; 99212

== ENCOUNTER → 2025-06-09 13:53 | Outpatient (BNV) | payer OTHER, SELFPAY | PROVIDERS: Visit Provider Internal Medicine | DX: Z01.818 Encounter for other preprocedural examination (principal) | CPT/HCPCS: 93010 ==